=== PATIENT | male | born 2000 | race Two or more races ===

== ENCOUNTER 2025-04-21 08:07 | Emergency (ER) | payer MEDICAID, SELFPAY ==
[2025-04-21 08:08] VITALS: BMI 29.0
[2025-04-21 08:14] VITALS: BP 151/79; PULSE 70; RESP 18; TEMP 37; O2SAT 99
--- NOTE | 2025-04-21 08:31 | EDNOTE_ITS ---
<Statement entered by Isabella Sutton MD - 04/21/25 13:42> As co-signing physician, I was present and available for consult prn. I concur with the plan and care as documented by the midlevel provider. ED Eye Problem RME/HPI General Chief complaint: Eye Problems Stated complaint: I GOT METAL SHAVINGS IN MY R EYE Time Seen by Provider: 04/21/25 08:23 Arrival date/time: 04/21/25 08:07 RME / HPI RME / HPI Narrative: 24-year-old male with a past medical history of Lasix, last tetanus shot was given to him 3 months ago, who is complaining of possibly getting metal shavings in his right eye yesterday as he still has some irritation. Denies any loss of vision, double vision, flashing lights, black spots, blurry vision. Related Data Previous Rx's ?Medication ?Instructions ?Recorded ofloxacin 0.3 % eye drops 2 drp ophthalmic (eye) QID 5 days 04/21/25 #10 mL Allergies Allergy/AdvReac Type Severity Reaction Status Date / Time No Known Allergies Allergy Verified 04/21/25 08:09 ED Exam Narrative Physical exam: Constitutional: Vital Signs Reviewed. Well appearing. No acute distress. Not toxic appearing. Head: Normocephalic, atraumatic. Eyes: Periorbital regions normal to inspection and palpation bilaterally unless otherwise noted. Right conjunctiva with mild injection and at 6 PM on the cornea there are two 1mm shiny metallic embedded objects Sclera anicteric bilaterally. Pupils equal, round, and reactive to light bilaterally. Extraocular movements intact bilaterally. Visual greenwood intact by confrontation bilaterally. No hyphema or hypopyon bilaterally. ENT: Mucous membranes moist. Neck: Trachea midline. Normal range of motion. No nuchal rigidity. Respiratory: Normal effort. No respiratory distress or accessory muscle use. Neuro: Alert and oriented. Speech normal. No focal gross motor or sensory deficits observed. Skin: Warm, dry, normal color. Psych: Pleasant. Normal affect. Cooperative. Course Quality Measures none Orders Category Date Time Status Slit Lamp to Bedside X1 Care 04/21/25 09:20 Active Visual Acuity NOW Care 04/21/25 10:23 Ordered Long Lamp to Bedside X1 Care 04/21/25 08:32 Completed Erythromycin Op Oint 0.5% Med 04/21/25 10:23 Once 1 gm RIGHT EYE X1 ONE Fluorescein Sodium [Bio-Vera] Med 04/21/25 08:32 Discontinued 1 mg RIGHT EYE X1 ONE Proparacaine Op Raina 0.5% [Alcaine Op Raina 0.5%] Med 04/21/25 08:32 Discontinued See Dose Instructions RIGHT EYE X1 ONE Vital Signs Vital signs: Vital Signs Temperature 98.6 F 04/21/25 08:14 Pulse Rate 70 04/21/25 08:14 Respiratory Rate 18 04/21/25 08:14 Blood Pressure 151/79 H 04/21/25 08:14 Pulse Oximetry (%) 99 04/21/25 08:14 Oxygen Delivery Method Room Air 04/21/25 08:14 PROCEDURES: FB Removal Eye Time Out performed: Yes Location: eye (R) Topical anesthetic used: proparacaine Foreign body: metal Evidence of corneal penetration: Yes Technique: irrigation, cotton tip swab and needle Procedure performed under: direct visualization with magnification Post-procedure medication: ophthalmic antibiotic and topical anesthetic Patient tolerated procedure: well and no complications Long Lamp Exam Right eye: Flourescein uptake:: No Long Lamp Findings: Normal Eye MDM Narrative MDM Narrative:: MDM The 2 metallic foreign bodies were removed 1 with a Q-tip the other with an 18- gauge needle and irrigation after the procedure no further foreign bodies grossly retained Doubt any other none superficial corneal/conjunctiva injury given lack of vision changes, photophobia, floaters, flashing lights, etc. Doubt Caustic keratoconjunctivitis (no perilimbal ischemia) No APD subjectively light is not dim. No hyphema. Doubt globe penetration (given negative seidels, No Teardrop-shaped pupil, No Subconjunctival hemorrhage involving entire (360 degree) sclera) Doubt Lens dislocation (No Diplopia, raised IOP, floaters, iris tremor) Slit lamp performed which did not show any uptake Plan for ophthalmic abx prophylactically, patient given proparacaine advise he can use 1 drop every 6 hours and only for up to 2 days then he needs to discard the medication, f/u with pmd and optho in 1-2 days, strict ER return precautions advised, avoidance of reinjury At the time of reassessment prior to discharge, the patient remains alert and oriented ?3 with GCS 15. Vitals are normal, pain is controlled, and the patient is tolerating oral intake without nausea or vomiting. The patient is agreeable to discharge and verbalizes understanding of the diagnosis, studies, treatment plan, medications (including side effects/precautions), and strict ER return precautions as discussed in the ED. All concerns were addressed, and the patient is comfortable with the plan. Patient data External records reviewed:: [facility] previous records Clinical information provided by:: patient Social determinants that could affect healthcare access:: none Patient has the following chronic illnesses:: None How is presenting disease/condition affected by chronic disease/condition?: uneffected by Evaluation data The following diagnostics were reviewed and interpreted by me:: lab results Lab and/or radiology exams considered but not ordered:: Additional Labs and radiology considered, but not ordered as they were not clinically indicated at this time. Interpretation Summary: As noted Medications / Prescriptions Medications or Prescriptions considered but not ordered:: I ordered medications based on the patient?s clinical needs and assessment, as documented in the chart. For medications not prescribed, they were not indicated for the patient's current condition, and I determined they were unnecessary at this time to avoid potential risks or complications. Medication administrations:: Medication Administration History Discontinued Medications Fluorescein Sodium (Fluorescein Sod 1 Mg Strp) 1 mg RIGHT EYE X1 ONE Stop: 04/21/25 08:33 Last Admin: 04/21/25 09:04 Dose: 1 mg Documented By: OSKAR Comments: GIVEN TO DARIAN HAY Proparacaine HCl (Proparacaine Op Raina 0.5% 15 Ml Btl) 0 drop RIGHT EYE X1 ONE Stop: 04/21/25 08:33 Last Admin: 04/21/25 09:04 Dose: 225 drop Documented By: OSKAR Comments: GIVEN TO DARIAN HAY TO BE ADMINISTERED ON PT'S R EYE As noted Consultations Consultation(s) initiated? (list below): No Diagnosis Eye Problem Differential Diagnosis: corneal abrasion and corneal ulcer Most likely diagnosis given after review of the tests above:: As noted Admission Indicated Admission indicated?: not indicated Admission Request Was there a request for admission?: No Disposition Plan Disposition Plan: Discharge Discharge Attestation Discharge Attestation: The patient and all family members were given an opportunity to ask questions and understood the discharge instructions. Discharge instructions specifically effects, indications for sooner follow up or return to the emergency department, and the expected course of current diagnosis. Patient condition: Stable Discharge Plan Plan Patient Disposition: HOME (Self Care) Patient condition on transfer: Stable Prescriptions/Referrals Prescriptions/Med Rec: New ofloxacin 0.3 % drops 2 drp ophthalmic (eye) QID 5 Days Qty: 10 0RF Referrals: Sandro Hernandez MD [Primary Care Provider, [facility]] - In 1 week Problem List Clinical Impression: Acute foreign body of cornea Patient/Caregiver Discharge Instructions Education Materials: ED Corneal Foreign Body, Removed Additional Instructions: Follow up with your primary medical doctor and an clinical physician assistant within 48 hours. Return to the Emergency Room immediately for any new, worsening, c ontinuing symptoms or any concerns at all. Return to the Emergency Room within 48 hours if you are unable to follow up with your primary medical doctor and an clinical physician assistant within 48 hours. Print Language: Malaysian Stand Alone Forms: Imelda Award Info., Patient Portal Info Letter PA/ANDREA Supervising Physician PA/ANDREA Supervising Physician: Dr. SUTTON
[2025-04-21] MEDS: PROPARACAINE OP SOL 0.5% 15 ML BTL RIGHT EYE (09:04)
[2025-04-21] MEDS: FLUORESCEIN SOD 1 MG STRP RIGHT EYE (09:04)
[2025-04-21] MEDS: Erythromycin Op Oint 0.5% 1 GM PACKET RIGHT EYE (10:31)
== END 2025-04-21 10:42 | disposition home or self-care (01) ==
PROVIDERS: Emergency Provider Emergency Medicine; PCP Family Medicine
DX: T15.02XA Foreign body in cornea, left eye, initial encounter (principal); T15.01XA Foreign body in cornea, right eye, initial encounter; W44.8XXA Other foreign body entering into or through a natural orifice, initial encounter; Y93.89 Activity, other specified
CPT/HCPCS: 65222; 99282; A9270